=== PATIENT | male | born 1955 | race Caucasian/White ===

== ENCOUNTER 2016-09-09 20:01 | Emergency (ER) | payer OTHER ==
[~2016-09-09] VITALS: Ht 167.6 cm; Wt 91.6 kg
--- NOTE | 2016-09-09 21:03 | ED UPPER/LOWER EXTREMITY COMPL ---
History of Present Illness General Chief Complaint: Laceration Procedure Stated Complaint: "LT INDEX/MIDDLE FINGER LAC" Source: patient Exam Limitations: no limitations Vital Signs & Intake/Output Vital Signs & Intake/Output Vital Signs Date Time Temp Pulse Resp B/P B/P Pulse O2 O2 Flow FiO2 Mean Ox Delivery Rate 09/09 2199 97.9 68 16 124/78 99 Room Air 09/09 2017 98.8 84 20 136/84 96 Room Air ED Intake and Output 09/10 0000 09/09 1200 Intake Total Output Total Balance Patient 202 lb Weight Weight Reported by Patient Measurement Method Allergies Coded Allergies: NO KNOWN ALLERGIES (UNKNOWN 09/09/16) Reconcile Medications Amoxicillin/Potassium Clav (Augmentin 875-125 Tablet) 875 MG-125 MG TABLET 1 TAB PO BID LACERATION OF FINGER Oxycodone HCl/Acetaminophen (Percocet 5-325 MG Tablet) 5 MG-325 MG TABLET 1 TAB PO BID PRN PAIN Triage Note: TRIAGE: PT TO ER C/C LAC TO L INDEX FINGER AND L MIDDLE FINGER S/P INJURY APPROX 1700. STATES HE INJURED SAME ON A TABLE SAW. HAS BANDAID DRESSING IN PLACE TO L INDEX FINGER, WOUND NOT VISUALIZED, BANDAID CLEAN/DRY/INTACT AT TRIAGE. NEW GAUZE DRESSING APPLIED TO LACERATION TO L MIDDLE FINGER, BLEEDING CONTROLLED. HAS LAC APPROX 1" IN LENGTH. Triage Nurses Notes Reviewed? yes Onset: Abrupt Duration: constant Timing: single episode today Severity: severe Severity Numbers: 7 HPI: Patient is a 61-year-old male with past medical history of hypertension, hyperlipidemia and diabetes who presents emergency and that today while sawing a piece of wood he accidentally lacerated the distal aspects of his third and fourth digit of his fingers resulting in lacerations with bleeding was controlled prior to arrival. Tetanus is up-to-date. Patient is right arm dominant. (TAIWO COOPER) Past History Travel History Traveled to [place] past 21 day No Medical History Any Pertinent Medical History? 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 No (TAIWO COOPER) Review of Systems Review of Systems Constitutional: Reports: no symptoms. EENTM: Reports: no symptoms. Respiratory: Reports: no symptoms. Cardiovascular: Reports: no symptoms. Gastrointestinal/Abdominal: Reports: no symptoms. Genitourinary: Reports: no symptoms. Musculoskeletal: Reports: see HPI. Skin: Reports: no symptoms. Neurological/Psychological: Reports: no symptoms. Hematologic/Endocrine: Reports: no symptoms. Immunological: Reports: no symptoms. All Other Systems: Reviewed and Negative (TAIWO COOPER) Physical Exam Physical Exam General Appearance: no apparent distress, alert Neurologic/Tendon: normal sensation, normal motor functions, normal tendon functions, responds to pain, no evidence tendon injury, no pulse deficit Skin: normal color, warm/dry Comments: Well-developed well-nourished no apparent distress. HEENT: Atraumatic, extraocular motion intact Neck: Supple, no lymphadenopathy Back: Nontender Respiratory: No respiratory distress Neuro: Alert and oriented x3 Psych: Mood affect normal, normal memory normal judgment. Diagram Hands Front 1) Noted serrated 1.5 irregular deep laceration with no canal involvement with peripheral skin avulsions noted full active range of motion full resisted range of motion noted with flexion and extension no active bleeding no exposed bone no exposed tendon 2) Noted serrated 1.5 irregular deep laceration with no canal involvement with peripheral skin avulsions noted full active range of motion full resisted range of motion noted with flexion and extension no active bleeding no exposed bone no exposed tendon (TAIWO COOPER) Progress Differential Diagnosis: arterial insufficiency, compartment syndrome, contusion, dislocation, DVT, fracture, gout, septic arthritis, sprain, tendon injury Plan of Care: Current Medications Sig/Kvng Start time Last Medication Dose Stop Time Status Admin Ibuprofen 600 MG ONCE ONE 09/09 2114 UNVr 09/09 (Motrin) 09/09 2ND DIGIT 4-0 #3 3RD DIGIT 4-0 #4 Patient has concerns of fracture to the third tuft finger Patient was strongly advised to follow-up with plastic surgery. No concerns of tendon deficit on exam (TAIWO COOPER) Diagnostic Imaging: Viewed by Me: Radiology Read. Radiology Impression: acute abnormality, fracture Comments: PATIENT: HEMA ANGULOSO PRESENT AGE: 61 PATIENT ACCOUNT NO: [id number] : 59 LOCATION: [facility] ORDERING PHYSICIAN: TAIWO GROVE SERVICE DATE: 09/09/16 EXAM TYPE: RAD - XRY-FINGERS, LEFT EXAMINATION: XR FINGER, LEFT CLINICAL INFORMATION: Second and 3rd digit table saw laceration. Evaluate for a fracture. COMPARISON: No relevant prior studies are available for comparison. TECHNIQUE: An AP view of the left hand as well as oblique and lateral views of the 2nd and 3rd digit were obtained. FINDINGS: There is a comminuted fracture at the ulnar aspect of the 3rd distal phalangeal tuft. Multiple tiny osseous fragments are noted. Small radiopaque foreign bodies cannot be entirely excluded. There is associated soft tissue irregularity consistent with a laceration. There is soft tissue irregularity adjacent to the 2nd distal phalanx, consistent with a laceration without an associated fracture. Degenerative changes are noted at the 1st metacarpophalangeal joint as well as diffusely within the proximal and distal interphalangeal joints. No osseous erosion. IMPRESSION: 1. Comminuted fracture at the ulnar aspect of the 3rd distal phalangeal tuft. Multiple tiny osseous fragments. Small radiopaque foreign bodies cannot be excluded. Associated soft tissue irregularity consistent with a laceration. 2. Laceration of the 2nd distal phalanx without associated osseous abnormality. 3. Scattered degenerative changes throughout the interphalangeal joints. DICTATED BY: OREN JARVIS MD (SOFIA GROVE,TAIWO) Departure Departure Disposition: HOME OR SELF CARE Condition: Stable Clinical Impression Primary Impression: Laceration of finger, left, complicated Secondary Impressions: Finger fracture, left Referrals: LEEANN BUCIO,AMTY Bucio (PCP/Family) MATY MEJIA MD Additional Instructions: As discussed the splinting and bandages that had been applied in the emergency room, leave this on at all times. Begin [id number] ibuprofen for pain and inflammation. Begin the prescription of Augmentin for infection prevention. If you note worsening signs of swelling pain fevers or you develop a new concerning symptom return to emergency room immediately. Follow-up on Sunday with plastic surgeon Dr. MEJIA for further evaluation treatment Begin the prescription of Percocet for breakthrough pain relief. Departure Forms: Customer Survey General Discharge Information Prescriptions: Current Visit Scripts Amoxicillin/Potassium Clav (Augmentin 875-125 Tablet) 1 TAB PO BID #14 TAB Oxycodone HCl/Acetaminophen (Percocet 5-325 MG Tablet) 1 TAB PO BID PRN PAIN #8 TAB (TAIWO COOPER) PA/DESIGN TEACHER Co-Sign Statement Statement: ED Attending supervision documentation- [] I saw and evaluated the patient. I have also reviewed all the pertinent lab results and diagnostic results. I agree with the findings and the plan of care as documented in the PA's/DESIGN TEACHER's documentation. [X] I have reviewed the ED Record and agree with the PA's/DESIGN TEACHER's documentation. [] Additions or exceptions (if any) to the PAs/DESIGN TEACHER's note and plan are summarized below: [] (XOCHILT SALINAS DO) Procedures Laceration/Wound Repair Laceration/Wound Repair: 1 Wound Location: upper extremity (LEFT SECOND DIGIT) Wound's Depth, Shape: irregular, subcutaneous Wound Length (cm): 1.5 Wound Explored: no foreign body removed, irrigated extensively Irrigated w/ Saline (ccs): 500 Betadine Prep? Yes Anesthesia: 1% lidocaine Volume Anesthetic (ccs): 5 Wound Debrided: minimal Wound Repaired With: sutures Suture Size/Type: 4:0 Number of Sutures: 3 Layer Closure? No Laceration/Wound Repair: 2 Wound Location: upper extremity (LEFT THIRD DIGIT) Wound's Depth, Shape: irregular, subcutaneous Wound Length (cm): 1.5 Wound Explored: no foreign body removed, irrigated extensively Irrigated w/ Saline (ccs): 5 Betadine Prep? Yes Anesthesia: 1% lidocaine Volume Anesthetic (ccs): 5 Wound Debrided: minimal Wound Repaired With: sutures Suture Size/Type: 4:0 Number of Sutures: 4 Layer Closure? No Progress: Margins were revised with suture placement however there was peripheral skin avulsions Xeroform was then applied tyler taping was performed to the second and third digit Gauze was then applied pre-and post-neurovascular was intact. P (TAIWO COOPER)
--- NOTE | 2016-09-09 21:36 | RADIOLOGY REPORT ---
EXAMINATION: XR FINGER, LEFT CLINICAL INFORMATION: Second and 3rd digit table saw laceration. Evaluate for a fracture. COMPARISON: No relevant prior studies are available for comparison. TECHNIQUE: An AP view of the left hand as well as oblique and lateral views of the 2nd and 3rd digit were obtained. FINDINGS: There is a comminuted fracture at the ulnar aspect of the 3rd distal phalangeal tuft. Multiple tiny osseous fragments are noted. Small radiopaque foreign bodies cannot be entirely excluded. There is associated soft tissue irregularity consistent with a laceration. There is soft tissue irregularity adjacent to the 2nd distal phalanx, consistent with a laceration without an associated fracture. Degenerative changes are noted at the 1st metacarpophalangeal joint as well as diffusely within the proximal and distal interphalangeal joints. No osseous erosion. IMPRESSION: 1. Comminuted fracture at the ulnar aspect of the 3rd distal phalangeal tuft. Multiple tiny osseous fragments. Small radiopaque foreign bodies cannot be excluded. Associated soft tissue irregularity consistent with a laceration. 2. Laceration of the 2nd distal phalanx without associated osseous abnormality. 3. Scattered degenerative changes throughout the interphalangeal joints.
[2016-09-09 22:00] VITALS: BP 124/78
[2016-09-09] MEDS ORDERED: AUGMENTIN 875-1 EACH PO (22:22)
[2016-09-09] MEDS ORDERED: PERCOCET 5-3251 EACH PO (22:24)
== END 2016-09-09 22:29 ==
LOC: ERH 20:01
DX: S61.211A Laceration without foreign body of left index finger without damage to nail, initial encounter (principal); S61.213A Laceration without foreign body of left middle finger without damage to nail, initial encounter; W27.0XXA Contact with workbench tool, initial encounter; Y92.9 Unspecified place or not applicable; Y93.9 Activity, unspecified
CPT/HCPCS: 73140-LT; J3490

== ENCOUNTER 2016-09-17 18:57 | Emergency (ER) | payer OTHER ==
[~2016-09-17] VITALS: Ht 167.6 cm; Wt 92.5 kg
[~2016-09-17 18:57] MED LIST: AUGMENTIN 875-1 EACH PO; PERCOCET 5-3251 EACH PO
[2016-09-17 19:07] VITALS: BP 112/64
--- NOTE | 2016-09-17 19:24 | ED SKIN/ALLERGY COMPLAINT ---
History of Present Illness General Chief Complaint: Suture Removal/Wound Recheck Stated Complaint: SUTURE REMOVAL Vital Signs & Intake/Output Vital Signs & Intake/Output Vital Signs Date Time Temp Pulse Resp B/P B/P Pulse O2 O2 Flow FiO2 Mean Ox Delivery Rate 09/17 1907 97.6 86 15 112/64 97 Room Air Room Air Allergies Coded Allergies: NO KNOWN ALLERGIES (UNKNOWN 09/17/16) Reconcile Medications Amoxicillin/Potassium Clav (Augmentin 875-125 Tablet) 875 MG-125 MG TABLET 1 TAB PO BID LACERATION OF FINGER Oxycodone HCl/Acetaminophen (Percocet 5-325 MG Tablet) 5 MG-325 MG TABLET 1 TAB PO BID PRN PAIN Triage Note: PT TO ED FOR SUTURE REMOVAL TO L THIRD AND FOURTH FINGERS. DENIES COMPLICATIONS. 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 EENTM: Reports: no symptoms. Respiratory: Reports: no symptoms. Cardiovascular: Reports: no symptoms. GI: Reports: no symptoms. Genitourinary: Reports: no symptoms. Musculoskeletal: Reports: no symptoms. Skin: Reports: no symptoms. Neurological/Psychological: Reports: no symptoms. Hematologic/Endocrine: Reports: no symptoms. Immunologic/Allergic: Reports: no symptoms. All Other Systems: Reviewed and Negative Physical Exam Physical Exam General Appearance: well developed/nourished, mild distress Head: atraumatic Eyes: Bilateral: PERRL, EOMI. Ears, Nose, Throat: normal pharynx, normal ENT inspection, hearing grossly normal Neck: normal inspection, supple Respiratory: normal breath sounds Cardiovascular: regular rate/rhythm Gastrointestinal: soft, non-tender Back: normal inspection Extremities: normal inspection, normal range of motion, no edema Neurologic/Psych: awake, alert, oriented x 3, normal mood/affect Lymphatic: no anterior cervical catie Departure Departure Condition: Stable Referrals: LEEANN BUCIO,MATY Bucio (PCP/Family) Departure Forms: Customer Survey General Discharge Information
--- NOTE | 2016-09-17 23:35 | ED SKIN/ALLERGY COMPLAINT ---
History of Present Illness General Chief Complaint: Suture Removal/Wound Recheck Stated Complaint: SUTURE REMOVAL Source: patient, old records Exam Limitations: no limitations Vital Signs & Intake/Output Vital Signs & Intake/Output Vital Signs Date Time Temp Pulse Resp B/P B/P Pulse O2 O2 Flow FiO2 Mean Ox Delivery Rate 09/17 1906 97.6 86 15 112/64 97 Room Air Room Air Allergies Coded Allergies: NO KNOWN ALLERGIES (UNKNOWN 09/17/16) Reconcile Medications Amoxicillin/Potassium Clav (Augmentin 875-125 Tablet) 875 MG-125 MG TABLET 1 TAB PO BID LACERATION OF FINGER Oxycodone HCl/Acetaminophen (Percocet 5-325 MG Tablet) 5 MG-325 MG TABLET 1 TAB PO BID PRN PAIN Triage Note: PT TO ED FOR SUTURE REMOVAL TO L THIRD AND FOURTH FINGERS. DENIES COMPLICATIONS. Triage Nurses Notes Reviewed? yes Onset: Gradual Duration: better Timing: recent history Severity: mild Severity Numbers: 1 HPI: Patient is a 61-year-old male who presents emergency room with requests of wound evaluation and suture removal requests in which on 09/09/2016 he suffered lacerations to his left third and fourth digit of his fingers requiring suture and finger splinting with he followed up with plastic surgeon and patient also was given antibiotics. Patient denies any fever chills discharge pain and is otherwise without complaints. (TAIWO COOPER) Past History Travel History Traveled to [place] past 21 day No Medical History Any Pertinent Medical History? 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 No (TAIWO COOPER) Review of Systems Review of Systems Constitutional: Reports: no symptoms. EENTM: Reports: no symptoms. Respiratory: Reports: no symptoms. Cardiovascular: Reports: no symptoms. GI: Reports: no symptoms. Genitourinary: Reports: no symptoms. Musculoskeletal: Reports: no symptoms. Skin: Reports: see HPI. Neurological/Psychological: Reports: no symptoms. Hematologic/Endocrine: Reports: no symptoms. Immunologic/Allergic: Reports: no symptoms. All Other Systems: Reviewed and Negative (TAIWO COOPER) Physical Exam Physical Exam General Appearance: no apparent distress, comfortable Skin: intact Skin Problem Location: upper extremities Comments: Well-developed well-nourished no apparent distress. HEENT: Atraumatic, extraocular motion intact Neck: Supple, no lymphadenopathy Back: Nontender Respiratory: No respiratory distress Extremities: No edema, full range of motion Neuro: Alert and oriented x3 Psych: Mood affect normal, normal memory normal judgment. Diagram Hands, Palmar: 1) Well-healing laceration noted with #3 intact sutures No erythema no warmth no discharge full active range of motion 2) Well-healing laceration noted with #4 intact sutures No erythema no warmth no discharge full active range of motion (TAIWO COOPER) Progress Differential Diagnosis: CELLULITIS, FOREIGN BODY, FRACTURE Plan of Care: In total #7 sutures removed from left hand digits no signs of infection bacitracin and bandage was applied. (TAIWO COOPER) Departure Departure Disposition: HOME OR SELF CARE Condition: Stable Clinical Impression Primary Impression: Visit for suture removal Referrals: LEEANN BUCIO,MATY Bucio (PCP/Family) Additional Instructions: If symptoms worsen return to the emergency room. Follow-up with your hand specialist as directed Departure Forms: Customer Survey General Discharge Information (TAIWO COOPER) PA/WEB APPLICATIONS ARCHITECT Co-Sign Statement Statement: ED Attending supervision documentation- [] I saw and evaluated the patient. I have also reviewed all the pertinent lab results and diagnostic results. I agree with the findings and the plan of care as documented in the PA's/WEB APPLICATIONS ARCHITECT's documentation. [x] I have reviewed the ED Record and agree with the PA's/WEB APPLICATIONS ARCHITECT's documentation. [] Additions or exceptions (if any) to the PAs/WEB APPLICATIONS ARCHITECT's note and plan are summarized below: [] (RAMIRO BUCIO,SUSHILA Lawson)
== END 2016-09-17 19:52 ==
LOC: ERH 18:57
DX: S61.215A Laceration without foreign body of left ring finger without damage to nail, initial encounter (principal); W45.8XXA Other foreign body or object entering through skin, initial encounter; Y92.9 Unspecified place or not applicable; Y93.9 Activity, unspecified
CPT/HCPCS: 99281

== ENCOUNTER 2017-06-23 20:52 | Emergency (ER) | payer OTHER ==
[~2017-06-23] VITALS: Ht 175.3 cm; Wt 72.6 kg
[~2017-06-23 20:52] MED LIST changes: +CHERATUSSIN AC118 M1 PO; +TESSALON PERLE100 M1 PO; +ZITHROMAX500 M2 PO
[2017-06-23 22:21] VITALS: BP 128/79
[2017-06-23] MEDS ORDERED: PERCOCET 5-3251 EACH PO (22:23)
--- NOTE | 2017-06-23 22:26 | ED HAND/WRIST INJURY COMPLAINT ---
History of Present Illness General Chief Complaint: Laceration Procedure Stated Complaint: LEFT HAND LAC Source: patient, family Exam Limitations: no limitations Vital Signs & Intake/Output Vital Signs & Intake/Output Vital Signs Date Time Temp Pulse Resp B/P B/P Pulse O2 O2 Flow FiO2 Mean Ox Delivery Rate 06/23 2221 98.4 74 18 128/79 98 Room Air 06/24 2135 Room Air 06/23 2053 97.7 78 18 138/74 99 Room Air ED Intake and Output 06/24 0000 06/23 1200 Intake Total Output Total Balance Patient 160 lb Weight Allergies Coded Allergies: NO KNOWN ALLERGIES (UNKNOWN 09/17/16) Reconcile Medications Amoxicillin/Potassium Clav (Augmentin 875-125 Tablet) 875 MG-125 MG TABLET 1 TAB PO BID LACERATION OF FINGER Azithromycin (Zithromax) 500 MG TABLET 1 TAB PO DAILY BRONCHITIS Benzonatate (Tessalon Perle) 100 MG CAPSULE 1 CAP PO TID PRN COUGH Codeine Phosphate/Guaifenesi (Cheratussin AC Syrup) 10 MG-100 MG/5 ML LIQUID 10 ML PO BID PRN COUGH DO NOT OPERATE MOTOR VEHICLES WITH THIS MEDICATION Oxycodone HCl/Acetaminophen (Percocet 5-325 MG Tablet) 5 MG-325 MG TABLET 1 TAB PO BID PRN PAIN Oxycodone HCl/Acetaminophen (Percocet 5-325 MG Tablet) 5 MG-325 MG TABLET 1 TAB PO BID PRN PAIN Triage Note: PT TO TRIAGE WITH LAC TO L MIDDLE FINGER CUT ON A KNIFE 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 PT APPLYING PRESSURE TO TOWEL WITH VISIBLE BLOOD, LAC UNVISUALIZED IN TRIAGE. PER PT LAST TETANUS 3-4 MONTHS AGO. Triage Nurses Notes Reviewed? yes Occurred: just prior to arrival Duration: hour(s): Timing: single episode today Injury Environment: home Severity: moderate Pain/Injury Location: Left: 3rd finger. Context: laceration Method of Injury: laceration HPI: 62-year-old male presents emergency department complaining of laceration to left middle finger. Patient states she was at home using razor blade for cutting and accidentally lacerated left middle finger. Patient tried staying home in controlling bleeding however bleeding was persistent and presented here to the emergency department. Patient had laceration within the past few months, his tetanus status was updated 3-4 months ago. Patient denies difficulty with range of motion, numbness, tingling. Past History Travel History Traveled to [place] past 21 day No Medical History Any Pertinent Medical History? 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 No Review of Systems Review of Systems Constitutional: Reports: no symptoms. EENTM: Reports: no symptoms. Respiratory: Reports: no symptoms. Cardiovascular: Reports: no symptoms. GI: Reports: no symptoms. Genitourinary: Reports: no symptoms. Musculoskeletal: Reports: see HPI. Skin: Reports: see HPI. Neurological/Psychological: Reports: no symptoms. Hematologic/Endocrine: Reports: no symptoms. Immunologic/Allergic: Reports: no symptoms. All Other Systems: Reviewed and Negative Physical Exam Physical Exam General Appearance: well developed/nourished, no apparent distress, alert, awake Head: atraumatic, normal appearance Eyes: Bilateral: normal appearance. Ears, Nose, Throat: hearing grossly normal Neck: normal inspection, supple, full range of motion Cardiovascular/Respiratory: normal peripheral pulses, no respiratory distress Back: normal inspection, normal range of motion Shoulder Left: normal range of motion, normal inspection Shoulder Right: normal range of motion, normal inspection Elbow Left: normal range of motion, normal inspection Elbow Right: normal range of motion, normal inspection Forearm Left: normal range of motion, normal inspection Forearm Right: normal range of motion, normal inspection Wrist Left: normal range of motion, normal inspection Wrist Right: normal range of motion, normal inspection Hand Left: normal range of motion, 3rd finger: 3cm laceration to dorsal finger over PIP, ROM intact, sensation intact Hand Right: normal inspection, normal range of motion Neurologic/Tendon: normal sensation, normal tendon functions Skin: see laceration above Progress Differential Diagnosis: fracture, sprain, tenosynovitis, laceration, tendon injury Plan of Care: Patient's tetanus status is up-to-date. Wound closed with sutures, patient tolerated procedure well. No bony tenderness, low suspicion for fracture given patient's mechanism of injury. Patient has adequate range of motion at this finger, no tendon was visualized. Patient placed in finger splint given laceration above his joint. He was educated on signs and symptoms of infection. The patient agrees with the plan of care. Departure Departure Disposition: HOME OR SELF CARE Condition: Stable Clinical Impression Primary Impression: Laceration Referrals: Gracy BUCIO,Evangelist Bucio (PCP/Family) Additional Instructions: Take Percocet as prescribed as needed for pain. Apply bacitracin ointment topically. Wear finger splint to prevent bending your knuckles and breaking stitches. Return in 7-10 days for removal of stitches. Monitor for signs of redness, swelling, increasing pain, cloudy drainage from wound, with any of these symptoms for which return to the emergency department for further evaluation. Please note that there might be incidental findings in your evaluation that are unrelated to the current emergency department visit. Please notify your primary care doctor about this emergency department visit in order to obtain and review all of the testing performed so that these incidental findings can be monitored as needed. If you had an x-ray performed, please understand that some fractures may not be seen on the initial set of x-rays. If your symptoms persist you might need a repeat set of x-rays to check for such a fracture. If you had a laceration evaluated, please understand that foreign bodies such as glass or wood may not be visible to the naked eye or on plain x-rays. If the wound becomes red, swollen, increasingly more painful or if there is any drainage from the wound, please have it reevaluated by a physician for the possibility of a retained foreign body. If you're unable to follow up as outlined in the discharge instructions please return to the emergency department. Thank you for choosing the [facility] Emergency Department for your care. It was a pleasure to serve you today. Departure Forms: Customer Survey General Discharge Information Prescriptions: Current Visit Scripts Oxycodone HCl/Acetaminophen (Percocet 5-325 MG Tablet) 1 TAB PO BID PRN PAIN #10 TAB Procedures Laceration/Wound Repair Laceration/Wound Repair: Wound Location: left third finger Wound's Depth, Shape: flap, linear Wound Length (cm): 3 Wound Explored: irrigated extensively Irrigated w/ Saline (ccs): 600 Betadine Prep? Yes Anesthesia: digit block, 1% lidocaine Volume Anesthetic (ccs): 6 Wound Repaired With: sutures Suture Size/Type: 4:0 Number of Sutures: 7 Layer Closure? No Sterile Dressing Applied: Yes Splint Applied? Yes By Who? by me Type of Splint Applied: finger Tetanus Status: up to date Progress: Patient tolerated procedure well.
== END 2017-06-23 22:00 ==
LOC: ERH 20:52
DX: S61.213A Laceration without foreign body of left middle finger without damage to nail, initial encounter (principal); W45.8XXA Other foreign body or object entering through skin, initial encounter; Y93.89 Activity, other specified; Y92.009 Unspecified place in unspecified non-institutional (private) residence as the place of occurrence of the external cause

== ENCOUNTER 2017-06-30 08:14 | Emergency (ER) | payer OTHER ==
[~2017-06-30] VITALS: Ht 167.6 cm; Wt 86.2 kg
[2017-06-30 08:16] VITALS: BP 132/75
--- NOTE | 2017-07-03 21:59 | ED GENERAL ADULT ---
See Addendum History of Present Illness General Chief Complaint: Suture Removal/Wound Recheck Stated Complaint: SUTURE REMOVAL Source: patient Exam Limitations: no limitations Vital Signs & Intake/Output Vital Signs & Intake/Output Follow-up as needed. Allergies Coded Allergies: NO KNOWN ALLERGIES (UNKNOWN 09/17/16) Reconcile Medications Amoxicillin/Potassium Clav (Augmentin 875-125 Tablet) 875 MG-125 MG TABLET 1 TAB PO BID LACERATION OF FINGER Azithromycin (Zithromax) 500 MG TABLET 1 TAB PO DAILY BRONCHITIS Benzonatate (Tessalon Perle) 100 MG CAPSULE 1 CAP PO TID PRN COUGH Codeine Phosphate/Guaifenesi (Cheratussin AC Syrup) 10 MG-100 MG/5 ML LIQUID 10 ML PO BID PRN COUGH DO NOT OPERATE MOTOR VEHICLES WITH THIS MEDICATION Oxycodone HCl/Acetaminophen (Percocet 5-325 MG Tablet) 5 MG-325 MG TABLET 1 TAB PO BID PRN PAIN Oxycodone HCl/Acetaminophen (Percocet 5-325 MG Tablet) 5 MG-325 MG TABLET 1 TAB PO BID PRN PAIN Triage Note: PT TO ED FOR SUTURE REMOVAL FROM LEFT MIDDLE FINGER, WHICH WERE PLACED LAST SUNDAY. Triage Nurses Notes Reviewed? yes Onset: Abrupt Duration: day(s): Timing: recent history HPI: 07/03/17 62-year-old man presented to the emergency department for suture removal. The patient had a laceration to the dorsal aspect of his left middle finger. The injury was approximately one week ago. He has no pain. No fever. No complaints. Past History Travel History Traveled to [place] past 21 day No Medical History Any Pertinent Medical History? 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 No Review of Systems Review of Systems Constitutional: Reports: no symptoms. EENTM: Reports: no symptoms. Respiratory: Reports: no symptoms. Cardiovascular: Reports: no symptoms. GI: Reports: no symptoms. Genitourinary: Reports: no symptoms. Musculoskeletal: Reports: no symptoms. Skin: Reports: see HPI. Neurological/Psychological: Reports: no symptoms. Hematologic/Endocrine: Reports: no symptoms. Immunologic/Allergic: Reports: no symptoms. Physical Exam Physical Exam General Appearance: well developed/nourished, no apparent distress, alert, awake , anxious Head: normal appearance Eyes: Bilateral: normal appearance. Ears, Nose, Throat: normal ENT inspection Neck: normal inspection Respiratory: no respiratory distress Cardiovascular: regular rate/rhythm Back: normal range of motion Extremities: Sutured wound left middle finger dorsal aspect Neurologic/Psych: no motor/sensory deficits, awake, alert, oriented x 3 Skin: sutured wound left middle finger Core Measures ACS in differential dx? No CVA/TIA Diagnosis: No Sepsis Present: No Sepsis Focused Exam Completed? No Progress Differential Diagnoses I considered the following diagnoses in my evaluation of the patient: [Foreign body, nerve injury, tendon injury Plan of Care: Follow-up as needed. Wound care as instructed. Initial ED EKG: none Departure Departure Disposition: HOME OR SELF CARE Condition: Stable Clinical Impression Primary Impression: Visit for suture removal Referrals: Gracy BUCIO,Evangelist Bucio (PCP/Family) Additional Instructions: KEEP THE WOUND COVERED TODAYWITH THE NEW DRESSING THEN PUT A BAND-AID ON TOMORROW NIGHT AND KEEP COVERED WITH A BAND-AID FOR THE NEXT 3 DAYS RETURN NEEDED Departure Forms: General Discharge Information Comments Procedure Under sterile technique the sutures removed. The wound was well approximated. There was no evidence of infection. Bacitracin and a sterile dressing was applied. The patient was instructed to return to the emergency department if increasing pain or new symptoms develop. Critical Care Note Critical Care Note Critical Care Time: non-applicable
== END 2017-06-30 08:50 ==
LOC: ERH 08:14
DX: Z48.02 Encounter for removal of sutures (principal)